=== PATIENT | female | born 1940 | race Caucasian/White ===

== ENCOUNTER → 2016-09-12 | Outpatient (CLI) | payer OTHER, MEDICARE ==
--- NOTE | 2016-09-12 09:20 | MR ---
MRI of the Thoracic Spine (Without Contrast) 0817 hours Reason for examination: Evaluate possible spinal stenosis thoracic region (M 48.04). Rule out worseni ng cord compression with attention T7-T8. Technique: Sagittal T1, FSE T2 2nd echo with fat suppression and STIR imaging. Axial T1 and FSE T2 2n d echo imaging with fat suppression. Findings: Comparison to February 22, 2015. There is stable minimal anterior wedging of T5-T8 with stable associated minimal accentuation of the anterior kyphosis of the midthoracic spine. No new compression fractures are identified. Bone marrow signal is normal. The thoracic spinal cord has a normal signal. Paravertebral soft tissues are normal as well. Mild Schmorl's node is once again present at the superior endplate of T12 stable in appeara nce. Mild disk bulge without significant consequences are seen at T1-T2 and T2-T3 stable in appearance. There is stable mild desiccation and loss of disk height of intervertebral disks throughout the thora cic spine. There is stable mild to moderate diffuse disk bulge at T7-T8 and at T8-T9 with small poste rior central disk protrusion that causes mild compression upon the spinal cord at this level with mod erate spinal stenosis similar to the prior study. There is also stable mild diffuse disk bulge at T11 -T12 without consequences and mild to moderate diffuse disk bulge at T12-L1 that along with mild left -sided facet hypertrophy contributes to mild spinal stenosis also similar to the prior study. There i s no new disk bulge or protrusion identified. Impression: 1. Stable mild to moderate degenerative disk disease at T7-T8 and at T8-T9 with diffuse disk bulge an d posterior central disk protrusion with associated moderate spinal stenosis. 2. Stable minimal anterior wedging midthoracic spine from T5 through T8 with associated accentuation of the anterior kyphosis also stable. 3. Mild disk bulges without significant consequences at T1-T2, T2-T3, T11-T12, and T12-L1.
== END ==
LOC: FIMAGING 07:29
PROVIDERS: ATTEND Physical Medicine & Rehabilitation
DX: M51.34 Other intervertebral disc degeneration, thoracic region (principal); M51.27 Other intervertebral disc displacement, lumbosacral region; M48.04 Spinal stenosis, thoracic region; M35.9 Systemic involvement of connective tissue, unspecified
CPT/HCPCS: 82306-90; 82607-90; 82784-90; 83516-90; 84481-90; 86812-90

== ENCOUNTER → 2016-09-18 | Outpatient (CLI) | payer OTHER, MEDICARE ==
--- NOTE | 2016-09-18 11:18 | MR ---
MRI Lumbar Spine, Without Contrast History: Low back pain. ICD-10 codes: M54.5, M48.04. Comparison: April 2014. Technique: MRI is performed of the lumbar spine using a 3 [employer] MRI system. Sagittal and axial imagin g was obtained with standard imaging sequences. Findings: There is a mild levoscoliotic curvature. Disk desiccation and disk height narrowing are see n at multiple levels. This most severe at L4-L5 and L5-S1 with more predominant disk height narrowing . Degenerative endplate change is seen at L4-L5 and L5-S1. Conus is visualized at T12-L1 and is unrem arkable. Incidental renal cortical cyst is seen midpole left kidney measuring 11 mm stable in appearance. T12-L1 level demonstrates a broad-based annular bulge and central protrusion moderately effacing the anterior thecal sac. The underlying broad-based annular bulge is causing minimal bilateral neural for aminal narrowing. No significant change. L1-L2 level demonstrates a broad-based annular bulge and mild facet arthropathy. There is moderate ce ntral spinal canal narrowing and bilateral lateral recess narrowing, right greater than left. There i s mild bilateral neural foraminal narrowing. No significant change. L2-L3 level demonstrates a broad-based annular bulge. Mild facet arthropathy is seen bilaterally caus ing moderate central spinal canal and [id number] bilateral neural foraminal narrowing, unchange d. L3-L4 level demonstrates a broad-based annular bulge. Facet arthropathy is seen bilaterally more pred ominant on the right than the left. There is moderate central spinal canal and bilateral lateral rece ss narrowing, right greater than left. There is moderate right and mild left neural foraminal narrowi ng, unchanged. L4-L5 level demonstrates a broad-based annular bulge. Facet arthropathy is seen bilaterally causing s evere central spinal canal and bilateral lateral recess narrowing similar in appearance. There is sev ere bilateral neural foraminal narrowing. This becomes more severe on the right over the interval. No other significant interval change. L5-S1 level demonstrates a broad-based annular bulge and lateral osteophytosis. Mild facet arthropath y is seen bilaterally. There is moderate left and mild to moderate right neural foraminal narrowing s table in appearance. There is mild left lateral recess narrowing. Impression: Multilevel degenerative disk and degenerative joint disease lumbar spine. Most significan t level is at L4-L5 with severe central spinal canal narrowing. There has been progressive right neur al foraminal narrowing at L4-L5. The other levels are stable as detailed above.
== END ==
LOC: FIMAGING 06:42
PROVIDERS: ATTEND Physical Medicine & Rehabilitation
DX: M51.36 Other intervertebral disc degeneration, lumbar region (principal); M47.816 Spondylosis without myelopathy or radiculopathy, lumbar region

== ENCOUNTER → 2016-10-01 | Outpatient (CLI) | payer OTHER, MEDICARE | LOC: BMCIMAGING 08:28 | DX: Z12.31 Encounter for screening mammogram for malignant neoplasm of breast (principal) | CPT/HCPCS: G0202 ==

== ENCOUNTER 2017-05-21 10:58 | Inpatient (IN) | payer OTHER, MEDICARE ==
[2017-05-01 09:42] LABS: % IMMATURE GRANULYOCYTES 0.4 % (0.0-1.1); ABSOLUTE IMMATURE GRANULOCYTES 0.03 10^3/uL (0.00-0.10); ADD DIFF? NO; ADD MORPH? NO; ADD SCAN? NO; ATYPICAL LYMPHOCYTE FLAG 20 (0-99); FRAGMENT RBC FLAG 0 (0-99); HEMATOCRIT 51.3 % (38.0-47.0); HEMOGLOBIN 16.6 g/dL (12.6-16.3); LEFT SHIFT FLG 0 (0-99); LIPEMIA HEMOLYSIS FLAG 80 (0-99); MEAN CELL HEMOGLOBIN 30.3 pg (27.9-34.1); MEAN CELL HEMOGLOBIN CONCENTR. 32.4 g/dL (32.4-36.7); MEAN CELL VOLUME 93.6 fL (81.5-99.8); MEAN PLATELET VOLUME 11.1 fL (8.7-11.7); PLATELET CLUMPS FLAG 10 (0-99); PLATELET COUNT 221 10^3/uL (150-400); RED BLOOD CELL COUNT 5.48 10^6/uL (4.18-5.33); RED CELL DISTRIBUTION WIDTH 13.9 % (11.5-15.2)
[~2017-05-21 10:58] MED LIST: BUPIVACAINE 0.5% 30 ML SDV ONE; ROPIVACAINE 0.2% 80 MG, EPINEPHrine 0.2 MG, KETOROLAC TROMETHAMINE 30 MG in BAG 0 ML IU ONE; TRANEXAMIC ACID 3,000 MG in NS 50 ML IRR ONE
[2017-05-21] MEDS ORDERED: VANCOMYCIN HCL/NORMAL SALINE 250 ML IV ONE (11:16)
[2017-05-21] MEDS ORDERED: DEXAMETHASONE 4 MG/ML VIAL IVP ONE (11:16)
[2017-05-21] MEDS ORDERED: FAMOTIDINE 20 MG TAB PO ONE (11:16)
[2017-05-21] MEDS ORDERED: VANCOMYCIN 1.25 GM in D5W 250 ML IV ONE (11:30)
[2017-05-21] MEDS ORDERED: LR 1,000 ML IV ONE (11:44)
[2017-05-21] MEDS ORDERED: LIDOCAINE 1% 2 ML INJ ID PRN (11:44)
--- NOTE | 2017-05-21 11:55 | PDHPUP ---
History & Physical Update H&P update statement: This history and physical update is based on an assessment of the patient which was completed after admission or registration (within 24 hours), but prior to the surgery/procedure. H&P update: H&P reviewed & patient examined, no change in patient's condition since H&P completed
[2017-05-21] MEDS ORDERED: LIDOCAINE 1% 2 ML INJ ONE (11:58)
[2017-05-21] MEDS ORDERED: VANCOMYCIN 1 GM VIAL ONE (12:27)
[2017-05-21] MEDS ORDERED: TRANEXAMIC ACID 3,000 MG/50 ML BAG IRR ONE (12:27)
--- NOTE | 2017-05-21 12:27 | PDANEPAE ---
ANE History of Present Illness 76 yo female with OA for L TKA. ANE Past Medical History - Cardiovascular History Hx Hypertension: No Hx Arrhythmias: No Hx Chest Pain: No Hx Coronary Artery / Peripheral Vascular Disease: No Hx CHF / Valvular Disease: No Hx Palpitations: No - Pulmonary History Hx COPD: No Hx Asthma/Reactive Airway Disease: No Hx Recent Upper Respiratory Infection: No Hx Oxygen in Use at Home: No Hx Sleep Apnea: No Sleep Apnea Screening Result - Last Documented: Negative - Neurologic History Hx Cerebrovascular Accident: No Hx Seizures: No Hx Dementia: No Neurologic History Comment: hx of neck surgery. gets back injections with Yurth x 10 yrs for arthritis - Endocrine History Hx Diabetes: No - Renal History Hx Renal Disorders: No - Liver History Hx Hepatic Disorders: No - Neurological & Psychiatric Hx Hx Neurological and Psychiatric Disorders: Yes Neurological / Psychiatric History Comment: occ anxiety uses ativan prn - Cancer History Hx Cancer: No - Congenital Disorder History Hx Congenital Disorders: No - GI History Hx Gastrointestinal Disorders: No - Other Health History Other Health History: wears glasses. osteoarthritis - Chronic Pain History Chronic Pain: Yes (left knee, low back, on chronic narcotics) - Surgical History Prior Surgeries: 11/2014 left RTC repair with Kevin. 06/02/13 c3-4, 4-5, 5-6, 6- 7 ACDF with Demetrius. 01/2007 right carpal tunnel. 07/2006 right TKA with Lidiaer. 02/2006 left knee scope. 1998 rght knee scope. 1994 lukasz. 1993 left carpal tunnel. 1983 emergent appy. 1969 d&c. 1954 right knee scope. 1944 tonsillectomy ANE Review of Systems Review of Systems: - Exercise capacity METS (RN): 4 METS ANE Patient History - Allergies Allergies/Adverse Reactions: codeine [Codeine] Allergy (Severe, Verified 05/05/17 17:03) Loses motor skills oxycodone [Oxycodone] Allergy (Severe, Verified 05/05/17 17:04) Other-Enter Comments bacitracin [From Neosporin] Allergy (Intermediate, Verified 05/05/17 17:03) Hives cephalexin [Cephalexin] Allergy (Intermediate, Verified 05/28/13 18:21) Rash Penicillins Allergy (Intermediate, Verified 05/05/17 17:03) Hives Tetanus Vaccines and Toxoid [Tetanus] Allergy (Intermediate, Verified 05/05/17 17:03) Hives acetaminophen [From Percocet] Allergy (Verified 05/12/17 10:54) Vomiting aspirin [From Percodan] Allergy (Verified 05/12/17 10:54) Vomiting ibuprofen Allergy (Verified 05/12/17 10:56) Vomiting lanolin Allergy (Verified 05/12/17 10:55) Rash propoxyphene [From Darvocet-N] Allergy (Verified 05/12/17 10:54) Vomiting wool Allergy (Mild, Uncoded 05/28/13 18:21) Rash - Home Medications Home medications: home medication list seen and reviewed Home Medications: HYDROcodone/APAP 10325 [[place] 10/325 (*)] 1 tab PO Q4 PRN 06/03/12 [Last Taken 05/21/17 03:00] Loratadine/Pseudoephedrine [Claritin-D 12 Hour Tablet] 1 each PO BID PRN [Last Taken 5 Weeks Ago ~04/16/17] LORazepam [Ativan (*)] 0.5 mg PO DAILY PRN 05/21/17 [Last Taken 5 Weeks Ago ~01/25] - NPO status NPO Since - Liquids (Date): 05/20/17 NPO Since - Liquids (Time): 21:00 NPO Since - Solids (Date): 05/20/17 NPO Since - Solids (Time): 18:00 - Anes Hx Anes Hx: post operative nausea and vomiting Hx Anesthesia Complications (with details): incomplete block for previous TKA - required GA -> PONV - Smoking Hx Smoking Status: Light smoker Marijuana use: No - Alcohol Use Alcohol Use: None - Family Anes Hx Family Anes Hx: neg - N/A Family Hx Anesthesia Complications: none ANE Labs/Vital Signs - Labs Result Diagrams: 05/01/17 09:10 - Vital Signs Blood Pressure: 122/78 Heart Rate: 78 Respiratory Rate: 14 O2 Sat (%): 93 Height: 163.5 cm Weight: 83 kg ANE Physical Exam - Airway Neck exam: spinal fusion Mallampati Score: Class 2 Mouth exam: normal dental/mouth exam - Pulmonary Pulmonary: clear to auscultation - Cardiovascular Cardiovascular: regular rate and rhythym - ASA Status ASA Status: II ANE Anesthesia Plan Anesthesia Plan: spinal Regional Anesthesia: adductor canal FNB
[2017-05-21] MEDS ORDERED: MIDAZOLAM 2 MG/2 ML VIAL IVP ONE (12:29)
[2017-05-21] MEDS ORDERED: fentaNYL 100 MCG/2 ML INJ ONE (13:44)
[2017-05-21] MEDS ORDERED: PROPOFOL/EMULSION 500 MG/50 ML BOTTLE IV ONE (13:44)
[2017-05-21] MEDS ORDERED: POLYETHYLENE GLYCOL 3350 17 GM PKT PO PRN (14:12)
[2017-05-21] MEDS ORDERED: MAGNESIUM HYDROXIDE 30 ML UDCUP PO PRN (14:12)
[2017-05-21] MEDS ORDERED: LACTULOSE 20 GM/30 ML UDCUP PO PRN (14:12)
[2017-05-21] MEDS ORDERED: ONDANSETRON 4 MG/2 ML VIAL IVP PRN ×2 (14:12→17:15)
[2017-05-21] MEDS ORDERED: TEMAZEPAM 15 MG CAP PO PRN (14:12)
[2017-05-21] MEDS ORDERED: PROMETHAZINE HCL 25 MG/ML INJ IVP PRN (14:12)
[2017-05-21] MEDS ORDERED: BISACODYL 10 MG SUPP PR PRN (14:12)
[2017-05-21] MEDS ORDERED: diphenhydrAMINE 25 MG CAP PO PRN (14:12)
[2017-05-21] MEDS ORDERED: METOCLOPRAMIDE 10 MG/2 ML VIAL IVP PRN (14:12)
[2017-05-21] MEDS ORDERED: DIPHENOXYLATE/ATROPINE LOMOTIL 1 TAB PO PRN (14:12)
[2017-05-21] MEDS ORDERED: PROMETHAZINE HCL 25 MG SUPPR PR PRN (14:12)
[2017-05-21] MEDS ORDERED: ONDANSETRON DISINTEGRATING 4 MG TAB PO PRN (14:12)
[2017-05-21] MEDS ORDERED: CYCLOBENZAPRINE 10 MG TAB PO PRN (14:12)
[2017-05-21] MEDS ORDERED: LORATADINE PO PRN (14:14)
[2017-05-21] MEDS ORDERED: PSEUDOEPHEDRINE PO PRN (14:14)
[2017-05-21] MEDS ORDERED: LORazepam 0.5 MG TAB PO PRN (14:14)
[2017-05-21] MEDS ORDERED: LR 1,000 ML IV SCH (14:30)
[2017-05-21] MEDS ORDERED: WARFARIN SODIUM 5 MG TAB PO SCH (16:00)
[2017-05-21] MEDS ORDERED: HYDROCODONE/APAP 10/325 TAB ONE (16:09)
[2017-05-21] MEDS: HYDROCODONE/APAP 10/325 TAB PO PRN ×2 (16:10→19:25)
--- NOTE | 2017-05-21 16:34 | POSTANESTH ---
Post Anesthetic Evaluation Cardiovascular Status: Normal, Stable Respiratory Status: Normal, Stable Level of Consciousness/Mental Status: Can Participate in Eval, Mildly Sleepy, Arousable Pain Control: Adequate, Prn Tx Ordered Nausea/Vomiting Control: Adequate, Prn Tx Ordered Complications Possibly Related to Anesthesia: None Noted (Pt reporting upper thoracic back pain.)
[2017-05-21] MEDS ORDERED: HYDROCODONE/APAP 5/325 TAB PO PRN (17:15)
[2017-05-21] MEDS ORDERED: fentaNYL 100 MCG/2 ML INJ IVP PRN (17:15)
[2017-05-21] MEDS ORDERED: NALOXONE HCL 0.4 MG/ML INJ IVP PRN (17:15)
[2017-05-21] MEDS ORDERED: LR 500 ML IV PRN (17:15)
[2017-05-21] MEDS: FAMOTIDINE 20 MG TAB PO SCH (20:46)
[2017-05-21] MEDS: SENNOSIDES/DOCUSATE SODIUM TAB PO SCH (20:47)
[2017-05-22] MEDS ORDERED: VANCOMYCIN 1 GM in D5W 250 ML IV SCH (01:00)
[2017-05-22] MEDS ORDERED: VANCOMYCIN HCL/NORMAL SALINE 250 ML IV ONE (01:00)
[2017-05-22] MEDS: HYDROCODONE/APAP 10/325 TAB PO PRN (02:17)
[2017-05-22 05:51] LABS: HEMATOCRIT 40.5 % (38.0-47.0); HEMOGLOBIN 13.8 g/dL (12.6-16.3)
[2017-05-22 06:05] LABS: ANION GAP 6 mEq/L (8-16); CALCIUM 9.6 mg/dL (8.5-10.4); CARBON DIOXIDE 22 mEq/l (22-31); CHLORIDE 106 mEq/L (97-110); CREATININE 0.9 mg/dL (0.6-1.0); GLOMERULAR FILTRATION RATE > 60; GLUCOSE 115 mg/dL (70-100); POTASSIUM 4.7 mEq/L (3.5-5.2); SODIUM 134 mEq/L (134-144)
[2017-05-22 06:14] LABS: INR 1.16 (0.83-1.16); PROTIME(PATIENT) 14.8 SEC (12.0-15.0)
[2017-05-22 07:49] VITALS: BP 110/58; PULSE 100; RESP 16; TEMP 97.6; O2SAT 87
[2017-05-22] MEDS: FAMOTIDINE 20 MG TAB PO SCH (08:16)
[2017-05-22] MEDS: SENNOSIDES/DOCUSATE SODIUM TAB PO SCH (08:16)
[2017-05-22] MEDS ORDERED: ENOXAPARIN 40 MG/0.4 ML SYR SC SCH (09:00)
--- NOTE | 2017-05-22 10:34 | SOAPPROG ---
SOAP Progress Note Assessment/Plan: Assessment: Bri is doing well POD 1 s/p L TKA 1) pain management: pain is well controlled on oral pain meds. 2) Anemia: level expected initially postop. asymptomatic. cont to monitor 3) VTE ppx: recommend coumadin 5 mg once daily and lovenox for the next 4 days. cont PEEWEE hose and SCDs 4)D/c planning: d/c to home pending release from PT Plan: 05/22/17 10:33 Subjective: Bri is doing well today, denies SOB ,chest pain and N/V. Objective: Vital Signs Temp Pulse Resp BP Pulse Ox 36.4 C 100 16 110/58 L 87 L 05/22/17 07:47 05/22/17 07:47 05/22/17 07:47 05/22/17 07:47 05/22/17 07:47 Laboratory Results 05/22/17 05:30 05/22/17 05:30 05/21/17 05/22/17 05/23/17 05:59 05:59 05:59 Intake Total 3385 350 Output Total 730 Balance 2655 350 PT 14.8 SEC (12.0-15.0) 05/22/17 05:30 INR 1.16 (0.83-1.16) 05/22/17 05:30 LLE: incision dressing is clean and dry, NVI, +pf/df ICD10 Worksheet Patient Problems: Problems Problem Status Onset Primary localized osteoarthritis of left knee Acute Gastritis Active Cervical radiculitis Acute Chronic midline posterior neck pain Acute Spinal cord compression Acute
--- NOTE | 2017-05-22 11:41 | GDS ---
[f rep st] DISCHARGE SUMMARY ADMISSION DIAGNOSIS: Left knee osteoarthritis. DISCHARGE DIAGNOSIS: Left knee osteoarthritis. PROCEDURE: Left total knee arthroplasty. VTE PROPHYLAXIS: Coumadin and Lovenox recommended. BRIEF DESCRIPTION OF HOSPITAL STAY: Patient was admitted for an elective joint arthroplasty. The pa tient tolerated the procedure well and has passed physical therapy. The patient was given appropriat e antibiotic prophylaxis and venous thromboembolism prophylaxis. The patient's pain was well control led on oral pain medication, patient was holding down food, and had urinated. Decision was made to d ischarge the patient. The patient was given post-operative prescriptions pre-operatively. PLAN: Please follow up as scheduled June 05 at 8:45 a.m. /[id number]/MODL
--- NOTE | 2017-05-22 12:36 | ASDISCHSUM ---
Discharge Information Plan Status:Home with No Needs Medically Cleared to Leave: Discharge Date:05/22/2017 10:40 AM CM D/C Disposition:Home, Routine, Self-Care ADT D/C Disposition:Home, Routine, Self-Care Projected Discharge Date:05/22/2017 10:40 AM Transportation at D/C: Discharge Delay Reason: Follow-Up Date:05/22/2017 10:40 AM Discharge Slot: Final Diagnosis: Placement Information Patient Contact Information Contact Name:NIKA Relationship: Address:[address] Work Phone: City:[place] [facility] Phone: State/Zip Code:[place] [address] Email: Financial Information Financial Class:MC Primary Plan Desc:MEDICARE INPATIENT Primary Plan Number:[id number] Secondary Plan Desc:[employer]/MDR SUPPLEMENT Secondary Plan Number:[id number] Assessment Information Intervention Information
--- NOTE | 2017-05-22 20:03 | GOP ---
[f rep st] OPERATIVE REPORT DATE OF OPERATION: 05/21/2017 SURGEON: Angelina Alvarado MD TRANSPORT TECHNICIAN: HEMALATHA Cox. ANESTHESIA: Spinal. PREOPERATIVE DIAGNOSIS: Left knee osteoarthritis. POSTOPERATIVE DIAGNOSIS: Left knee osteoarthritis. PROCEDURE PERFORMED: Left total knee arthroplasty. FINDINGS/PATHOLOGY: Severe medial patellofemoral osteoarthritis. ESTIMATED BLOOD LOSS: 30 cc. INDICATIONS: This is a 76-year-old female with severe and progressive pain and deformity of the left knee unresponsive to conservative care. Risks and benefits of the surgical intervention were explained in detail. DESCRIPTION OF PROCEDURE: The patient was brought to the operative room and placed on the table in the supine position. Spinal anesthesia was induced without difficulty. A pneumatic tourniquet was applied about the left proximal thigh, and the leg was prepped and draped in a sterile fashion. The leg graham was applied. After exsanguination by elevation the tourniquet was inflated to 275 mm of mercury. Incision was made anterior medial from the tibial tuberosity to a point 2 cm proximal to the superior pole of the patella. Medial parapatellar arthrotomy was carried out from the superior pole of the patella and posteriorly in line with the fibers of the Type II VMO. The medial collateral ligament was elevated and the infrapatellar fat pad was resected. The patella was everted and the articular surface was excised. A 32 mm patellar button was placed. The distal femoral guide hole was drilled and the 6 degree alignment tiny was placed. An 8 mm distal femoral cut was made without difficulty. Attention was turned to the tibia and a standard 9 mm cut based on the lateral tibial condyle was performed. The tibial articular surface was excised without difficulty. Attention was turned back to the femur and a size 4 femoral cutting block was positioned. Anterior, posterior, and chamfer cuts were made, followed by the intercondylar box cut. The knee was extended and the remnants of the medial and lateral meniscus were excised. The posterior capsule was injected with ropivacaine, epinephrine and Toradol. A size 4 tibial tray was positioned. Trial reduction was then carried out. There was excellent range of motion, alignment, and stability using the 9 mm polyethylene. All trials were then removed. The joint was thoroughly irrigated and carefully dried. Two packages of cement and 2 grams of vancomycin were mixed in the vacuum mixer and placed on the fixation surfaces of all surfaces of the components. The components were implanted and all excess cement was thoroughly removed. The permanent 13 mm polyethylene was placed without difficulty. The tourniquet was deflated and all bleeders were coagulated. The wound was thoroughly irrigated and closed using interrupted sutures of 2-0 Vicryl for the joint capsule. The subcu was closed with 3-0 Vicryl and the skin with 4-0 Monocryl. Dermabond and Steri-Strips were applied followed by a compressive dressing. The patient was then moved from the operating room to the recovery room in good condition, having tolerated the procedure well. /[id number]/MODL MTDD
== END 2017-05-22 10:40 | disposition home or self-care (01) | DRG 470 ==
LOC: F3E 10:58 → F3N 16:55
PROVIDERS: ADMIT Orthopaedic Surgery; ATTEND Orthopaedic Surgery
PROC: 0SRD0J9 Replacement of Left Knee Joint with Synthetic Substitute, Cemented, Open Approach (ICD-10-PCS; principal; 2017-05-21 13:15)
DX: M17.12 Unilateral primary osteoarthritis, left knee (principal); Z98.1 Arthrodesis status; Z96.651 Presence of right artificial knee joint
CPT/HCPCS: 97161-GP; 97165-GO; C1713; G8978-GP-CI; G8979-GP-CI; G8980-GP-CI; G8987-GO-CI; G8988-GO-CI; G8989-GO-CI; J0171; J1100; J1650; J1885; J2250; J2704; J2795; J3010; J3370

== ENCOUNTER → 2017-09-23 | Outpatient (CLI) | payer OTHER, MEDICARE ==
[~2017-09-23] MED LIST changes: -BUPIVACAINE 0.5% 30 ML SDV ONE; +GADOBUTROL 10 ML VIAL IVP ONE; -ROPIVACAINE 0.2% 80 MG, EPINEPHrine 0.2 MG, KETOROLAC TROMETHAMINE 30 MG in BAG 0 ML IU ONE; -TRANEXAMIC ACID 3,000 MG in NS 50 ML IRR ONE
== END ==
LOC: FIMAGING 07:16
PROVIDERS: ATTEND Physical Medicine & Rehabilitation
DX: M50.31 Other cervical disc degeneration, high cervical region (principal); M48.02 Spinal stenosis, cervical region; Z98.1 Arthrodesis status
CPT/HCPCS: 72156; A9585

== ENCOUNTER → 2018-08-29 | Outpatient (CLI) | payer OTHER, MEDICARE | LOC: BMCIMAGING 09:28 | PROVIDERS: ATTEND Family Medicine | DX: J44.1 Chronic obstructive pulmonary disease with (acute) exacerbation (principal) ==